=== PATIENT | female | born 1970 | race American Indian/Alaskan Native ===

== ENCOUNTER 2018-08-08 13:39 | Emergency (ER) | payer OTHER ==
[2018-08-08 14:53] VITALS: BP 117/65
--- NOTE | 2018-08-08 14:55 | Emergency Department Report ---
Abscess Boil HPI - HPI Chief Complaint: Skin/Abscess/Foreign Body Stated Complaint: SPIDER BITE Time Seen by Provider: 08/08/18 14:51 Duration: 1 Day Location: Other Severity: Mild History: No Fever, No Pain, No Purulent Drainage, No Foreign Body HPI: INSECT BITE TO CHIN YESTERDAY. CONCERNED SPIDER BITE. MIN SWELLING Home Medications: Previous Rx's Medication Instructions Recorded Last Taken Type Sulfamethoxazole/Trimethoprim 1 each PO BID #6 tablet 08/08/18 Unknown Rx [Bactrim DS TAB] methylPREDNISolone [Medrol] 4 mg PO DAILY #1 tab.ds.pk 08/08/18 Unknown Rx Allergies/Adverse Reactions: Allergies Allergy/AdvReac Type Severity Reaction Status Date / Time Penicillins Allergy Unknown Verified 08/08/18 13:41 ED Review of Systems ROS: Stated complaint: SPIDER BITE Other details as noted in HPI Comment: All other systems reviewed and negative ED Past Medical Hx - Past Medical History Previous Medical History?: No - Surgical History Past Surgical History?: No - Family History Family history: no significant - Medications Home Medications: Home Medications Medication Instructions Recorded Confirmed Last Taken Type Sulfamethoxazole/Trimethoprim 1 each PO BID #6 tablet 08/08/18 Unknown Rx [Bactrim DS TAB] methylPREDNISolone [Medrol] 4 mg PO DAILY #1 tab.ds.pk 08/08/18 Unknown Rx ED Abscess Boil Physical Exam - Exam General: Vital signs noted. No distress. Alert and acting appropriately. Exam: Yes Normal Neurologic Exam, Yes Normal Circulation, No Tenderness, No Fluctuance, No Surrounding Cellulites/Erythema, No Lymphangitis, No Crepitation, No Heart Murmur Critical care attestation.: If time is entered above; I have spent that time in minutes in the direct care of this critically ill patient, excluding procedure time. ED Medical Decision Making - Medical Decision Making SIMPLE INSECT BITE MIN SWELLING NO ABSCESS PT REASSURED DC HOME Vital Signs 08/08/18 14:52 Temperature 98.1 F Pulse Rate 89 Respiratory 18 Rate Blood Pressure 117/65 [Right] O2 Sat by Pulse 97 Oximetry ED Disposition Clinical Impression: Insect bite Disposition: DC-01 TO HOME OR SELFCARE Is pt being admited?: No Does the pt Need Aspirin: No Condition: Stable Instructions: Insect Bite or Sting (ED) Additional Instructions: MED ORDERED TODAY FOLLOW UP PCP IF PERSISTS WASH WITH SOAP AND WATER DO NOT PICK AT THE AREA Prescriptions: Sulfamethoxazole/Trimethoprim [Bactrim DS TAB] 1 each PO BID #6 tablet methylPREDNISolone [Medrol] 4 mg PO DAILY #1 tab.ds.pk Referrals: [facility] [Outside] - 3-5 Days Time of Disposition: 14:53
== END 2018-08-08 14:55 | disposition home or self-care (01) ==
LOC: ED 13:39
DX: S00.86XA Insect bite (nonvenomous) of other part of head, initial encounter (principal); Z88.0 Allergy status to penicillin; W57.XXXA Bitten or stung by nonvenomous insect and other nonvenomous arthropods, initial encounter; Y93.89 Activity, other specified; Y92.89 Other specified places as the place of occurrence of the external cause; Y99.8 Other external cause status
CPT/HCPCS: 99281